=== PATIENT | male | born 1950 | race Caucasian/White ===

== ENCOUNTER 2020-06-24 10:03 | Outpatient (REF) | payer MEDICARE, OTHER, SELFPAY ==
[2020-06-24 11:13] LABS: MANUAL DIFF FLAG NO
[2020-06-24 11:23] LABS: Basophils Absolute Auto 0.1 X10*3/uL (0.0-0.2); Basophils Percent Auto 0.9 % (0-2); Eosinophils Absolute Auto 0.2 X10*3/uL (0.0-0.4); Hematocrit 44.4 % (42-52); Hemoglobin 14.3 g/dl (14.0-18.0); Imm Gran Abs Auto 0.01 X10*3/uL (0.00-0.03); Imm Gran Pct Auto 0.2 % (0.0-0.4); Immature Retic Fraction 3.3 % (2.3-13.4); Lymphocytes Absolute Auto 1.8 X10*3/uL (1.2-4.9); Mean Corpuscular HGB Conc 32.2 g/dl (31.0-36.0); Mean Corpuscular Hemoglobin 29.7 pg (27.0-33.0); Mean Corpuscular Volume 92.1 fL (80-98); Mean Platelet Volume 10.8 fL (9.4-12.4); Monocytes Absolute Auto 0.4 X10*3/uL (0.1-1.2); Monocytes Percent Auto 6.5 % (2-11); Neutrophils Absolute Auto 3.1 X10*3/uL (2.0-8.3); Neutrophils Percent Auto 55.4 % (45-73); Platelet Count 251 X10*3/uL (160-400); Red Blood Count 4.82 X10*6/uL (4.60-5.80); Red Cell Distribution Width 11.9 % (11.0-16.0); Retic HGB Equivalent 34.2 pg (30.0-35.0); Reticulocyte Percent 0.8 % (0.5-1.8); Reticulocytes Absolute 0.038 X10*6/uL (0.026-0.095); White Blood Count 5.5 X10*3/uL (4.8-10.8)
[2020-06-24 11:56] LABS: Alanine Aminotransferase 13 U/L (0-40); Albumin Level 4.4 g/dL (3.5-5.0); Alkaline Phosphatase 70 U/L (39-117); Anion Gap 14 (12-20); Aspartate Amino Transferase 25 U/L (5-37); Blood Urea Nitrogen 16 mg/dL (9-16); Carbon Dioxide 30 mmol/L (22-29); Chloride 101 mmol/L (96-108); Cholesterol 201 mg/dL; Estimated Glomerular Filt Rate > 60; Glucose Fasting 84 mg/dL (60-99); HDL Cholesterol 57 mg/dL; Iron 168 mcg/dL (45-160); LDL Cholesterol Calculated 125 mg/dl; Percent Iron Saturation 52 % (15-50); Potassium 4.7 mmol/l (3.3-5.1); Sodium 140 mmol/L (135-145); Total Iron Binding Capacity 324 mcg/dL (228-428); Total Protein 7.3 g/dL (6.5-8.0); Triglycerides 99 mg/dL; Unsaturated Iron Binding 156 ug/dL
[2020-06-24 12:18] LABS: Folate 16.5 ng/mL (> or = 4.0); Vitamin B12 285 pg/mL (200-900)
[2020-06-24 12:20] LABS: Ferritin 69 ng/mL (20-250); Thyroid Stimulating Hormone 1.65 uIU/mL (0.32-4.0)
[2020-06-24 12:53] LABS: T4 Thyroxine 9.5 ug/dL (4.5-12.0)
== END 2020-06-24 10:04 | disposition home or self-care (01) ==
LOC: HO.HMGCLDS 10:03
PROVIDERS: PCP Internal Medicine; Visit Provider Internal Medicine
DX: E03.9 Hypothyroidism, unspecified (principal); G43.909 Migraine, unspecified, not intractable, without status migrainosus; R63.4 Abnormal weight loss; E78.00 Pure hypercholesterolemia, unspecified; D64.9 Anemia, unspecified
CPT/HCPCS: 36415; 80053; 80061; 82607; 82728; 82746; 83540; 84436; 84443; 85025; 85045

== ENCOUNTER 2021-08-29 08:36 | Outpatient (REF) | payer MEDICARE, OTHER, SELFPAY ==
[2021-08-29 08:53] LABS: MANUAL DIFF FLAG NO
[2021-08-29 09:10] LABS: Basophils Absolute Auto 0.1 X10*3/uL (0.0-0.2); Basophils Percent Auto 1.1 % (0-2); Eosinophils Absolute Auto 0.2 X10*3/uL (0.0-0.4); Hematocrit 44.2 % (42.0-52.0); Hemoglobin 14.5 g/dl (14.0-18.0); Imm Gran Abs Auto 0.01 X10*3/uL (0.00-0.03); Imm Gran Pct Auto 0.2 % (0.0-0.4); Lymphocytes Absolute Auto 2.2 X10*3/uL (1.2-4.9); Lymphocytes Percent Auto 39.4 % (20-40); Mean Corpuscular HGB Conc 32.8 g/dl (31.0-36.0); Mean Corpuscular Hemoglobin 29.3 pg (27.0-33.0); Mean Corpuscular Volume 89.3 fL (80.0-98.0); Mean Platelet Volume 10.2 fL (9.4-12.4); Monocytes Absolute Auto 0.4 X10*3/uL (0.1-1.2); Monocytes Percent Auto 6.4 % (2-11); Neutrophils Absolute Auto 2.7 x10*3/uL (2.0-8.3); Neutrophils Percent Auto 48.9 % (45-73); Platelet Count 269 X10*3/uL (160-400); Red Blood Count 4.95 X10*6/uL (4.60-5.80); Red Cell Distribution Width 12.1 % (11.0-16.0); White Blood Count 5.5 X10*3/uL (4.8-10.8)
[2021-08-29 09:36] LABS: Alanine Aminotransferase 15 U/L (0-40); Albumin Level 4.2 g/dL (3.5-5.0); Alkaline Phosphatase 82 U/L (39-117); Anion Gap 10 (12-20); Aspartate Amino Transferase 26 U/L (5-37); Bilirubin Total 0.6 mg/dL (0.0-1.0); Blood Urea Nitrogen 20 mg/dL (9-16); Calcium 9.4 mg/dL (8.4-10.2); Carbon Dioxide 28 mmol/L (22-29); Chloride 106 mmol/L (96-108); Cholesterol 181 mg/dL; Estimated Glomerular Filt Rate > 60; Glucose Random 98 mg/dL (60-115); HDL Cholesterol 51 mg/dL; LDL Cholesterol Calculated 119 mg/dl; Potassium 4.7 mmol/L (3.3-5.1); Sodium 139 mmol/L (135-145); Total Protein 7.2 g/dL (6.5-8.0); Triglycerides 55 mg/dL
[2021-08-29 09:59] LABS: Free T4 (Free Thyroxine) 1.33 ng/dL (0.71-1.85); Prostate Specific Antigen Scr 0.88 ng/mL (<0.05-4.0); Thyroid Stimulating Hormone 2.02 uIU/mL (0.32-4.0)
[2021-08-29 10:08] LABS: Folate 13.9 ng/mL (> or = 4.0); Vitamin B12 348 pg/mL (200-900)
== END 2021-08-29 08:37 | disposition home or self-care (01) ==
LOC: HO.LAB 08:36
PROVIDERS: PCP Internal Medicine; Visit Provider Internal Medicine
DX: Z12.5 Encounter for screening for malignant neoplasm of prostate (principal); N40.0 Benign prostatic hyperplasia without lower urinary tract symptoms; E78.00 Pure hypercholesterolemia, unspecified
CPT/HCPCS: 36415; 80053; 80061; 82607; 82746; 84153; 84439; 84443; 85025

== ENCOUNTER → 2021-11-15 08:18 | Outpatient (BNVA) | payer SELFPAY | PROVIDERS: PCP Internal Medicine; Visit Provider Physician Assistant Medical | DX: Z02.79 Encounter for issue of other medical certificate (principal) ==

== ENCOUNTER 2022-01-20 08:13 | Day surgery (SDC) | payer MEDICARE, OTHER, SELFPAY ==
--- NOTE | 2022-01-19 08:48 | P.CONAN_ITS ---
Documented by User: Deborah Armenta NP 01/19/22 08:50 HPI - Anesthesia Eval Consult details Narrative: 71yo M for Colonoscopy PMFSH Active Problems Active Problems: All Active Problems (Updated 12/20/21 @ 19:26 by VALDEZ Garcia) Adult general medical exam (Acute) Colon cancer screening (Acute) Hypercholesterolemia (Acute) Hypothyroid (Acute) BPH (benign prostatic hyperplasia) (Acute) Osteoarthritis (Acute) Past Medical History Medical History Anemia BPH (benign prostatic hyperplasia) Closed right hip fracture Heel fracture Hypercholesterolemia Hypothyroid Migraine Osteoarthritis Testicular nodule Vitamin D deficiency Family History Family History Father CAD (coronary artery disease) Smoker CVD (cardiovascular disease) Malaria Mother Diabetes Pancreatic cancer Paternal Grandmother Breast cancer Surgical History Surgical History History of ankle surgery History of foot surgery History of inguinal hernia repair History of nasal surgery History of right hip hemiarthroplasty Hx of dilation of urethra Social History Social History Housing: House Patient Tobacco Use Status: Never used Tobacco e-Cigarette/Vaping Use: Never Used Second Hand Smoke Exposure: No Are you DNR?: No Advance Directives: No Advance Directives Information Provided: Yes Advance Directives on File: No Nutrition Risks: No Nutritional Risk Current occupational status: retired Meds Allergies Allergy/AdvReac Type Severity Reaction Status Date / Time No Known Allergies Allergy Verified 01/20/22 09:24 [No Known Allergies*] Home Medications Medication Instructions Recorded Confirmed Last Taken Type coenzyme Q10 100 mg capsule 100 mg PO DAILY 07/02/20 12/20/21 Unknown History (CoQ-10) ibuprofen 400 mg tablet 400 mg PO Q6H 07/02/20 12/20/21 Unknown History Exam Exam Date and Time: January 19, 2022 0848 Pertinent Lab Results Pertinent Lab Results: Laboratory Tests 08/29/21 08/29/21 08:52 08:52 WBC 5.5 Hgb 14.5 Hct 44.2 Plt Count 269 Sodium 139 Potassium 4.7 Chloride 106 Carbon Dioxide 28 BUN 20 H Creatinine 0.92 Assessment and Plan Assessment Anesthesia Assessment: Chart Reviewed Documented by User: Jason Lopez MD 01/20/22 10:23 PMFSH Past Medical History Medical History Anemia BPH (benign prostatic hyperplasia) Closed right hip fracture Heel fracture Hypercholesterolemia Hypothyroid Migraine Osteoarthritis Testicular nodule Vitamin D deficiency Family History Family History Father CAD (coronary artery disease) Smoker CVD (cardiovascular disease) Malaria Mother Diabetes Pancreatic cancer Paternal Grandmother Breast cancer Family history of problems with anesthesia: No Surgical History Surgical History History of ankle surgery History of foot surgery History of inguinal hernia repair History of nasal surgery History of right hip hemiarthroplasty Hx of dilation of urethra History of Problems with Anesthesia: No Social History Social History Housing: House Patient Tobacco Use Status: Never used Tobacco e-Cigarette/Vaping Use: Never Used Second Hand Smoke Exposure: No Are you DNR?: No Advance Directives: No Advance Directives Information Provided: Yes Advance Directives on File: No Nutrition Risks: No Nutritional Risk Current occupational status: retired [employer] Allergies Allergy/AdvReac Type Severity Reaction Status Date / Time No Known Allergies Allergy Verified 01/20/22 09:24 [No Known Allergies*] Home Medications Medication Instructions Recorded Confirmed Last Taken Type coenzyme Q10 100 mg capsule 100 mg PO DAILY 07/02/20 12/20/21 Unknown History (CoQ-10) ibuprofen 400 mg tablet 400 mg PO Q6H 07/02/20 12/20/21 Unknown History Exam Airway Mallampati Class: II TM Dist: >3cm Neck ROM: Full Assessment and Plan Assessment Anesthesia Assessment: Anesthesia Plan Discussed Final Anesthetic Review Family History of Problems with Anesthesia: No History of Problems with Anesthesia: No NPO: Yes ASA Class: II Final Preanesthetic Review: No Changes in Pt Med Stat, Meds/Allgs Chart Reviewed, Consent Obtained/Reviewed and Anes Risks/Benef Reviewed Patient Risk: Low Procedure Risk: Low Anesthetic Plan Anesthetic Plan: MAC: Disposition: Standard PACU
[2022-01-20 09:21] VITALS: BP 127/94; PULSE 57; RESP 18; TEMP 36.7; O2SAT 97; BMI 25.1
[2022-01-20] MEDS: Lactated Ringers 1,000 ML 100 ML IVCONT (09:54)
--- NOTE | 2022-01-20 10:30 | PC.NURSE ---
dr. madden aware that pt pulse at rest is 42-46. pulse in 50's when awake and talking. no interventions at this time needed
[2022-01-20 11:37] VITALS: BP 94/61; PULSE 52; RESP 15; TEMP 36.4; O2SAT 98
--- NOTE | 2022-01-20 11:38 | P.BOP_ITS ---
Brief Operative Note Date of Service: 01/20/22 Pre-op diagnosis: Screening Post-op diagnosis: other (Diverticulosis) Procedure: Colonoscopy to the cecum and TI Surgeon: Jean De Dios Anesthesia: MAC Was an Inshore Undersea Warfare Officer used for this Procedure?: No Estimated blood loss (mL): 0 Pathology: none sent Condition: stable Disposition: PACU
[2022-01-20 11:52] VITALS: BP 113/67; PULSE 57; RESP 15; TEMP 36.4; O2SAT 97
[2022-01-20 12:07] VITALS: BP 119/76; PULSE 50; RESP 16; O2SAT 97
[2022-01-20 12:16] VITALS: BP 105/70; PULSE 51; RESP 16; TEMP 36.4; O2SAT 98
--- NOTE | 2022-01-20 12:22 | OP_ITS ---
SURGEON: Jean De Dios MD INDICATIONS: The patient presents for followup of colorectal cancer screening and personal history of tubular adenoma of the colon. Full consent was obtained from him for this, including risks of bleeding and perforation. PREOPERATIVE DIAGNOSIS: POSTOPERATIVE DIAGNOSIS: PROCEDURE PERFORMED: Colonoscopy to cecum and terminal ileum. ESTIMATED BLOOD LOSS: COMPLICATIONS: ANESTHESIA: Monitored anesthesia care. ASSISTANTS: SPECIMENS: PREOPERATIVE DIAGNOSES: Colorectal cancer screening and personal history of tubular adenoma of the colon. POSTOPERATIVE DIAGNOSES: Colorectal cancer screening and personal history of tubular adenoma of the colon, diverticulosis and internal hemorrhoids. DESCRIPTION OF PROCEDURE: The patient was placed in the left lateral decubitus position. The digital rectal exam revealed no abnormalities. The Olympus video pediatric colonoscope was entered into the rectum and advanced to the cecum. Once in the cecum, I did identify normal-appearing cecal pouch with appendiceal orifice and a normal-appearing ileocecal valve. The terminal ileum was cannulated and appeared normal. The scope was withdrawn back in the colon. The entire cecum and ileocecal valve appeared normal. The scope was slowly withdrawn assessing all mucosal surfaces carefully. Preparation was excellent. I did not visualize any sign of polyps, colitis, nor angiodysplasia. There was a mild amount of sigmoid diverticulosis. In the rectum, scope was retroflexed visualizing internal hemorrhoids, but no other pathology. The rectal mucosa appeared normal. Scope was straightened and withdrawn from the patient. He tolerated the procedure well and was returned to recovery area in stable condition. IMPRESSION: 1. Diverticulosis. 2. Internal hemorrhoids. PLAN: Given the negative exam, as well as 2 previous negative colonoscopies in 2010 and 2015, I do not think he will need any further screening colonoscopies in the future. As such, he will see me again on a p.r.n. basis. MD OTTONIEL Escalante/[facility] / [phone]
== END 2022-01-20 12:35 | disposition home or self-care (01) ==
PROVIDERS: PCP Internal Medicine; Visit Provider Internal Medicine
PROC: 0DJD8ZZ Inspection of Lower Intestinal Tract, Via Natural or Artificial Opening Endoscopic (ICD-10-PCS; CPT 45378; principal; 2022-01-20 10:40)
DX: Z12.11 Encounter for screening for malignant neoplasm of colon (principal); Z86.010 Personal history of colon polyps; K57.30 Diverticulosis of large intestine without perforation or abscess without bleeding; K64.8 Other hemorrhoids; E78.00 Pure hypercholesterolemia, unspecified; E03.9 Hypothyroidism, unspecified; Z79.899 Other long term (current) drug therapy
CPT/HCPCS: G0105

== ENCOUNTER 2022-03-03 04:43 | Emergency (ER) | payer MEDICARE, OTHER, SELFPAY ==
--- NOTE | 2022-03-03 | ECG_ITS ---
Test Reason : LOW HEART RATE Blood Pressure : / mmHG Vent. Rate : 036 BPM Atrial Rate : 036 BPM P-R Int : 186 ms QRS Dur : 138 ms QT Int : 500 ms P-R-T Axes : 014 -72 002 degrees QTc Int : 386 ms Marked sinus bradycardia Left axis deviation Left ventricular hypertrophy with QRS widening ( R in aVL , Alberto product ) Septal infarct (cited on or before 08-JAN-2019) Abnormal ECG When compared with ECG of 08-JAN-2019 15:01, Questionable change in initial forces of Septal leads Heart rate has decreased Referred By: Generic ED Physician Electronically Signed By:ADRIENNE BALDWIN
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
[2022-03-03 04:48] VITALS: BP 153/76; PULSE 38; RESP 18; TEMP 36.2; O2SAT 98
[2022-03-03 05:08] VITALS: BP 144/69; PULSE 42; RESP 16; TEMP 36.4; O2SAT 97; BMI 23.8
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
[2022-03-03 06:19] VITALS: BP 131/93; PULSE 57; RESP 20; O2SAT 98
[2022-03-03 06:29] LABS: MANUAL DIFF FLAG NO
[2022-03-03 06:32] LABS: Basophils Absolute Auto 0.1 X10*3/uL (0.0-0.2); Basophils Percent Auto 0.8 % (0-2); Eosinophils Absolute Auto 0.2 X10*3/uL (0.0-0.4); Eosinophils Percent Auto 2.5 % (0-4); Hematocrit 40.6 % (42.0-52.0); Hemoglobin 13.5 g/dl (14.0-18.0); Imm Gran Abs Auto 0.02 X10*3/uL (0.00-0.03); Imm Gran Pct Auto 0.3 % (0.0-0.4); Lymphocytes Percent Auto 33.7 % (20-40); Mean Corpuscular HGB Conc 33.3 g/dl (31.0-36.0); Mean Corpuscular Hemoglobin 29.7 pg (27.0-33.0); Mean Corpuscular Volume 89.2 fL (80.0-98.0); Mean Platelet Volume 9.9 fL (9.4-12.4); Monocytes Absolute Auto 0.4 X10*3/uL (0.1-1.2); Neutrophils Absolute Auto 3.3 x10*3/uL (2.0-8.3); Neutrophils Percent Auto 55.7 % (45-73); Platelet Count 218 X10*3/uL (160-400); Red Blood Count 4.55 X10*6/uL (4.60-5.80)
[2022-03-03 06:51] LABS: Alanine Aminotransferase 10 U/L (0-40); Alkaline Phosphatase 69 U/L (39-117); Anion Gap 13 (12-20); Aspartate Amino Transferase 23 U/L (5-37); Bilirubin Total 0.8 mg/dL (0.0-1.0); Blood Urea Nitrogen 17 mg/dL (9-16); Carbon Dioxide 26 mmol/L (22-29); Chloride 105 mmol/L (96-108); Estimated Glomerular Filt Rate > 60; Glucose Random 97 mg/dL (60-115); Potassium 4.2 mmol/L (3.3-5.1); Sodium 140 mmol/L (135-145); Total Protein 6.9 g/dL (6.5-8.0)
[2022-03-03 07:12] LABS: Thyroid Stimulating Hormone 0.98 uIU/mL (0.32-4.0)
== END 2022-03-03 07:19 | disposition home or self-care (01) ==
PROVIDERS: Emergency Provider Internal Medicine; PCP Internal Medicine
DX: S62.91XA Unspecified fracture of right hand, initial encounter for closed fracture (principal); R00.1 Bradycardia, unspecified; M79.641 Pain in right hand; X58.XXXA Exposure to other specified factors, initial encounter; Y93.9 Activity, unspecified; Y92.9 Unspecified place or not applicable; Y99.9 Unspecified external cause status; Z79.899 Other long term (current) drug therapy
CPT/HCPCS: 29125; 36415; 73120; 80053; 83735; 84443; 85025; 93005; 99283; 99284

== ENCOUNTER 2022-03-04 09:31 | Emergency (ER) | payer MEDICARE, OTHER, SELFPAY ==
[2022-03-04 09:41] VITALS: BP 135/79; PULSE 41; RESP 17; TEMP 36.1; O2SAT 98
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
[2022-03-04 10:04] VITALS: BMI 27.1
== END 2022-03-04 10:09 | disposition home or self-care (01) ==
PROVIDERS: Emergency Provider Emergency Medicine; PCP Internal Medicine
DX: Z46.89 Encounter for fitting and adjustment of other specified devices (principal); S62.306D Unspecified fracture of fifth metacarpal bone, right hand, subsequent encounter for fracture with routine healing; V49.9XXD Car occupant (driver) (passenger) injured in unspecified traffic accident, subsequent encounter
CPT/HCPCS: 99282

== ENCOUNTER 2022-03-08 08:24 | Outpatient (REF) | payer MEDICARE, OTHER, SELFPAY ==
--- NOTE | ~2022-03-08 | XR_ITS ---
EXAMINATION: XR HAND, RIGHT CLINICAL INFORMATION: Pain right hand. COMPARISON: Right hand 03/03/2022. TECHNIQUE: PA, lateral, and oblique views of the right hand. FINDINGS: There is an oblique mildly displaced fracture mid 5th metacarpal. There is no dislocation. XR/XR hand RT min 3V IMPRESSION: Oblique fracture mid segment 5th metacarpal with minimal displacement. No change from from previous exam 03/03/2022.
== END 2022-03-08 08:25 | disposition home or self-care (01) ==
LOC: HO.HOSX 08:24
PROVIDERS: Visit Provider Orthopaedic Surgery
DX: S62.326A Displaced fracture of shaft of fifth metacarpal bone, right hand, initial encounter for closed fracture (principal)
CPT/HCPCS: 73130; 99202

== ENCOUNTER 2022-04-04 09:13 | Outpatient (REF) | payer MEDICARE, OTHER, SELFPAY ==
--- NOTE | ~2022-04-04 | XR_ITS ---
EXAMINATION: XR HAND, RIGHT CLINICAL INFORMATION: Fracture COMPARISON: Previous x-ray most recent 03/08/2022 TECHNIQUE: PA, lateral, and oblique views of the right hand. FINDINGS: There is a displaced fracture of the fifth metacarpal bone. Alignment is unchanged. Fracture line is still seen. There is some increasing bony callus formation at the fracture site. There is severe arthritis at the wrist with widened scapholunate distance, proximal migration of the capitate bone and marked joint space narrowing at the radiocarpal joint. There may be cystic changes of the wrist, particularly the capitate bone. Soft tissues are unremarkable.. XR/XR hand RT min 3V IMPRESSION: Increasing bony callus formation of the fifth metacarpal shaft fracture. Alignment is unchanged.
== END 2022-04-04 09:14 | disposition home or self-care (01) ==
LOC: HO.HOSX 09:13
PROVIDERS: Visit Provider Orthopaedic Surgery
DX: M79.641 Pain in right hand (principal)
CPT/HCPCS: 73130

== ENCOUNTER 2022-04-12 07:10 | Outpatient (REF) | payer MEDICARE, OTHER, SELFPAY ==
--- NOTE | ~2022-04-12 | XR_ITS ---
EXAMINATION: XR HIP, RIGHT CLINICAL INFORMATION: Pain COMPARISON: Right hip radiograph from 02/24/2019 TECHNIQUE: Two views of the right hip. FINDINGS: Status post right hip arthroplasty. Orthopedic hardware is grossly intact. No acute visible fracture or dislocation. Degenerative arthropathy at the lumbosacral junction. Visualized bowel gas is unremarkable. Soft tissues are unremarkable. XR/XR hip RT w [id number] IMPRESSION: 1. Status post right hip arthroplasty. Orthopedic hardware is grossly intact. 2. No acute visible fracture or dislocation. 3. Degenerative arthropathy at the lumbosacral junction.
== END 2022-04-12 07:11 | disposition home or self-care (01) ==
LOC: HO.HOSX 07:10
PROVIDERS: Visit Provider Physician Assistant
DX: M25.551 Pain in right hip (principal); Z96.641 Presence of right artificial hip joint
CPT/HCPCS: 73502; 99212

== ENCOUNTER 2022-10-19 10:28 | Outpatient (REF) | payer MEDICARE, OTHER, SELFPAY ==
[2022-10-19 10:46] LABS: MANUAL DIFF FLAG NO
[2022-10-19 11:02] LABS: Basophils Absolute Auto 0.1 X10*3/uL (0.0-0.2); Basophils Percent Auto 1.3 % (0-2); Eosinophils Absolute Auto 0.3 X10*3/uL (0.0-0.4); Eosinophils Percent Auto 6.7 % (0-4); Hematocrit 41.7 % (42.0-52.0); Hemoglobin 13.8 g/dl (14.0-18.0); Imm Gran Abs Auto 0.01 X10*3/uL (0.00-0.03); Imm Gran Pct Auto 0.2 % (0.0-0.4); Lymphocytes Percent Auto 42.2 % (20-40); Mean Corpuscular HGB Conc 33.1 g/dl (31.0-36.0); Mean Corpuscular Hemoglobin 29.5 pg (27.0-33.0); Mean Corpuscular Volume 89.1 fL (80.0-98.0); Mean Platelet Volume 10.2 fL (9.4-12.4); Monocytes Absolute Auto 0.3 X10*3/uL (0.1-1.2); Monocytes Percent Auto 7.4 % (2-11); Neutrophils Percent Auto 42.2 % (45-73); Platelet Count 233 X10*3/uL (160-400); Red Blood Count 4.68 X10*6/uL (4.60-5.80); Red Cell Distribution Width 12.1 % (11.0-16.0); White Blood Count 4.6 X10*3/uL (4.8-10.8)
[2022-10-19 11:36] LABS: Alanine Aminotransferase 13 U/L (0-40); Albumin Level 4.1 g/dL (3.5-5.0); Alkaline Phosphatase 88 U/L (39-117); Anion Gap 11 (12-20); Aspartate Amino Transferase 25 U/L (5-37); Bilirubin Total 1.2 mg/dL (0.0-1.0); Blood Urea Nitrogen 16 mg/dL (9-16); Calcium 9.2 mg/dL (8.4-10.2); Carbon Dioxide 28 mmol/L (22-29); Chloride 107 mmol/L (96-108); Cholesterol 196 mg/dL; Estimated Glomerular Filt Rate > 60; Glucose Random 90 mg/dL (60-115); HDL Cholesterol 44 mg/dL; LDL Cholesterol Calculated 136 mg/dl; Potassium 4.3 mmol/L (3.3-5.1); Sodium 142 mmol/L (135-145); Total Protein 6.7 g/dL (6.5-8.0); Triglycerides 84 mg/dL
[2022-10-19 12:11] LABS: Folate 15.3 ng/mL (> or = 4.0); Free T4 (Free Thyroxine) 1.33 ng/dL (0.71-1.85); Prostate Specific Antigen Scr 1.01 ng/mL (<0.05-4.0); Thyroid Stimulating Hormone 0.87 uIU/mL (0.32-4.0); Vitamin B12 379 pg/mL (200-900)
== END 2022-10-19 10:29 | disposition home or self-care (01) ==
LOC: HO.LAB 10:28
PROVIDERS: PCP Internal Medicine; Visit Provider Internal Medicine
DX: E03.9 Hypothyroidism, unspecified (principal); E78.00 Pure hypercholesterolemia, unspecified; Z12.5 Encounter for screening for malignant neoplasm of prostate
CPT/HCPCS: 36415; 80053; 80061; 82607; 82746; 84153; 84439; 84443; 85025

== ENCOUNTER 2023-04-25 12:57 | Outpatient (AMB) | payer MEDICARE, OTHER, SELFPAY ==
[2023-04-25 13:15] VITALS: BP 118/68; PULSE 52; O2SAT 98; BMI 23.6
--- NOTE | 2023-04-25 13:15 | A.OFFPC_ITS ---
Vital Signs 04/25/23 13:15 Height 6 ft Weight 174 lb BMI 23.6 BP 118/68 Blood Pressure Location Lt brachial Position Sitting Pulse 52 Pulse Source Pulse Oximeter Pulse Oximetry (%) 98 Oxygen Delivery Method Room Air Intake Visit Reasons: cholesterol Allergies No Known Allergies [No Known Allergies*] Allergy (Verified 04/25/23 13:15) Tobacco use date assessed: 10/26/22 Fall risk assessment: No Falls in past year Last assessed Fall Risk: 04/25/23 Dental Screening Dental Screen Date: 04/25/23 Did you have a dental visit in the last 12 months?: Yes Did you have a dental problem in the last 6 months where you did not have access to dental care?: No Was dental information given to patient?: Patient has dentist HPI cholesterol HPI Details Hjxtwof[age]fckn[age]-old male with a history of BPH hypothyroidism hypercholesterolemia and chronic anemia coming in for follow-up. Last seen in October 2022 [facility] Medical History (Updated 04/25/23 @ 13:35 by Jonathan Pearl MD) Closed right hip fracture Testicular nodule Heel fracture Hypercholesterolemia Vitamin D deficiency Hypothyroid BPH (benign prostatic hyperplasia) Migraine Anemia Osteoarthritis Surgical History (Updated 04/12/22 @ 09:42 by Thom De Jesus) History of right hip hemiarthroplasty Hx of dilation of urethra History of foot surgery History of inguinal hernia repair History of nasal surgery History of ankle surgery Family History (Updated 10/26/22 @ 13:56 by Kathya Cavazos [facility]) Father CAD (coronary artery disease) Smoker CVD (cardiovascular disease) Malaria Mother Diabetes Pancreatic cancer Paternal Grandmother Breast cancer Social History Housing: House Patient Tobacco Use Status: Never used Tobacco e-Cigarette/Vaping Use: Never Used Second Hand Smoke Exposure: No Current occupational status: employed and retired 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 1. Little interest or pleasure in doing things: not at all 2. Feeling down, depressed, or hopeless: not at all 3. Trouble falling or staying asleep, or sleeping too much: not at all 4. Feeling tired or having little energy: not at all 5. Poor appetite or overeating: not at all 6. Feeling bad about yourself - or that you are a failure or have let yourself or your family down: not at all 7. Trouble concentrating on things, such as reading the newspaper or watching television: not at all 8. Moving or speaking so slowly that other people could have noticed. Or the opposite - being so fidgety or restless that you have been moving around a lot more than usual: not at all 9. Thoughts that you would be better off or of hurting yourself in some way: not at all Total score: 0 Depression Screening Interpretation: Negative Depression Screening Done: Yes Source: Developed by Drs. Jean Adair, Rebeka Chaudhary, Tony Jiang and colleagues, with an educational ganesh from [employer]. Thrive Questionnaire Date Thrive assessed: 10/26/22 AUDIT C Alcohol Use Questionnaire (AUDIT-C) 1. How often do you have a drink containing alcohol?: Monthly or less 2. How many drinks containing alcohol do you have on a typical day when you are drinking?: 1 or 2 3. How often do you have six or more drinks on one occasion?: Never Total Score: 1 Score Reviewed/Action Taken: No ALBA-7 AMB Questionnaire ALBA-7 Date ALBA - 7 assessed: 10/26/22 Source: Developed by Drs. Jean Adair, Tony Dunaway and colleagues, with an educational ganesh from [employer]. Physical exam (Primary Care) Vital Signs: Last Vital Signs Pulse 52 04/25/23 13:15 BP 118/68 04/25/23 13:15 Pulse Ox 98 04/25/23 13:15 Oxygen Delivery Method Room Air 04/25/23 13:15 BMI result Body Mass Index 23.6 Tobacco/Smoking Status: Tobacco use Status Tobacco use date assessed 10/26/22 04/25/23 13:20 Patient Tobacco Use Status Never used Tobacco 04/25/23 13:20 e-Cigarette/Vaping Use Never Used 04/25/23 13:20 PHQ-9: PHQ-9 Score PHQ-9: Total score 0 04/25/23 13:23 Depression Screening Interpretation: Negative Thrive Assessment: Date of Thrive Assessment Date Thrive assessed 10/26/22 04/25/23 13:20 Const General: alert; No acute distress Eyes Conjunctivae: conjunctivae normal Resp Auscultation: clear to auscultation bilaterally Cardio Rate: regular rate Rhythm: regular rhythm GI Inspection: Yes normal to inspection Extrem General: Yes normal to inspection and No edema Office Procedures Flu Questionnaire Does the patient have a severe egg allergy?: No Does the patient have severe life threatening allergies?: No Does the patient have a fever or illness today?: No Has the patient ever had Guillain-[place] Syndrome?: No Has the patient ever had any past reaction to a flu shot?: No Immunizations flu vacc [id number] 6mos up(PF) 60 mcg(15 mcgx4)/0.5 mL IM syringe Performing Provider: Jonathan Pearl MD [facility] Administered by: Kathya Cavazos CMA on 04/25/23 13:23 Dose Route Admin Location Dispensed Lot Number Expiration Date NDC Line Installer Repairer 0.5 mL IM Left Deltoid 0.5 mL [id number] 01/12/23 [id number] Cardio control VIS Given Date VIS Provided VIS Publication Date 04/25/23 Single Vaccine 21 Eligibility Eligibility Date Funding Source Not [facility] Eligible 04/25/23 Private Assessment and Plan Assessment & Plan (1) Anemia: Code(s): D64.9 - Anemia, unspecified Plan: Continue to monitor (2) Hypercholesterolemia: Code(s): E78.00 - Pure hypercholesterolemia, unspecified Plan: . October 2022 last blood work Avoid fried foods, chicken skin, eggs, butter margarine, pastries and meat. Be it pork or beef they have a lot of cholesterol. Patient is on simvastatin (3) Hypothyroid: Code(s): E03.9 - Hypothyroidism, unspecified Plan: Continue with thyroid medication October 2022 last blood work (4) Frequency of micturition: Code(s): R35.0 - Frequency of micturition (5) Tremor of both hands: Code(s): R25.1 - Tremor, unspecified Orders: Orders US bladder Today R35.0 - Frequency of micturition Influenza [id number] Immunization Today Z23 - Encounter for immunization Coding Level of Care Code Est Pt Level 4 (56013) Diagnoses Anemia D64.9 Hypercholesterolemia E78.00 Hypothyroid E03.9 Frequency of micturition R35.0 Tremor of both hands R25.1 Additional Codes PHQ-9 - 24799 - PHQ-9 Billing: ([id number])
== END 2023-04-25 13:41 | disposition home or self-care (01) ==
PROVIDERS: Visit Provider Internal Medicine
DX: D64.9 Anemia, unspecified (principal); E78.00 Pure hypercholesterolemia, unspecified; E03.9 Hypothyroidism, unspecified; R35.0 Frequency of micturition; R25.1 Tremor, unspecified; Z23 Encounter for immunization
CPT/HCPCS: 90471; 90686; 99214

== ENCOUNTER 2023-05-30 13:43 | Outpatient (REF) | payer MEDICARE, OTHER, SELFPAY ==
--- NOTE | ~2023-05-30 | US_ITS ---
EXAMINATION: US PELVIS LIMITED (BLADDER) CLINICAL INFORMATION: Frequency of micturition. COMPARISON: None available. TECHNIQUE: Real-time imaging of the bladder. FINDINGS: BLADDER: Well distended and normal. Bilateral ureteral jets are demonstrated. Prevoid bladder volume is 172.0 mL. Postvoid bladder volume is 2.0 mL. ADDITIONAL FINDINGS: The prostate is enlarged measuring 5.6 x 4.3 x 3.4 cm for a volume of 43 mL. US/US bladder IMPRESSION: Enlarged prostate. No significant postvoid residua.
== END 2023-05-30 13:44 | disposition home or self-care (01) ==
LOC: HO.US 13:43
PROVIDERS: PCP Internal Medicine; Visit Provider Internal Medicine
DX: R35.0 Frequency of micturition (principal)
CPT/HCPCS: 76857

== ENCOUNTER 2023-07-11 15:11 | Outpatient (AMB) | payer MEDICARE, OTHER, SELFPAY ==
[2023-07-11 15:18] VITALS: BP 106/80; PULSE 61; O2SAT 92; BMI 23.9
--- NOTE | 2023-07-11 15:18 | AM.OFFVISMDC ---
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 Patient had frequency and had an ultrasound of bladder showing enlarged prostate but able to empty out the bladder.. 10 days ago flu PFSH Medical History (Updated 07/11/23 @ 18:59 by Jonathan Pearl MD) Closed right hip fracture Testicular nodule Heel fracture Hypercholesterolemia Vitamin D deficiency Hypothyroid BPH (benign prostatic hyperplasia) Migraine Anemia Osteoarthritis Surgical History History of right hip hemiarthroplasty Hx of dilation of urethra History of foot surgery History of inguinal hernia repair History of nasal surgery History of ankle surgery Family History Father CAD (coronary artery disease) Smoker CVD (cardiovascular disease) Malaria Mother Diabetes Pancreatic cancer Paternal Grandmother Breast cancer Social History (Updated 07/11/23 @ 16:19 by Jonathan Pearl MD) Housing: House Alcohol intake: current Comment: 2-3 drinks a week 1-2 x a week Patient Tobacco Use Status: Never used Tobacco e-Cigarette/Vaping Use: Never Used Second Hand Smoke Exposure: No Current occupational status: employed and retired 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 Cognitive needs: No Hearing needs: No Vision needs: Yes Questionnaire Medicare Wellness Checkup [age] What gender do you identify with?: male During the past 4 weeks, how much have you been bothered by emotional problems such as feeling anxious, depressed, irritable, sad or downhearted, and blue?: not at all During the past 4 weeks, has your physical & emotional health limited your social activities with family, friends, neighbors, or groups?: not at all During the past 4 weeks, how much bodily pain have you generally had?: mild pain During the past 4 weeks, was someone available to help you if you needed & wanted help?: yes, a little During the past 4 weeks, what was the hardest physical activity you could do for at least 2 minutes?: heavy Can you get to places out of walking distance without help? (For eg., can you travel alone on buses, taxis or drive your car?): Yes Can you go shopping for groceries or clothes without someone's help?: Yes Can you prepare your own meals?: Yes Can you do your housework without help?: Yes Because of any health problems, do you need the help of another person with your personal care needs such as eating, bathing, dressing or getting around the house?: No During the past 4 weeks, how would you rate your health in general?: very good During the past 4 weeks how have things been going for you?: very well; could hardly better Are you having difficulties driving your car?: no Do you always fasten your seat belt when you are in a car?: yes, usually During past 4 weeks, have you been bothered by the following: never: Falling or dizzy when standing up, Trouble eating well? and Problems using the telephone? and seldom: Sexual problems?, Teeth or denture problems? and Tiredness or fatigue? Have you fallen 2 or more times in the past year?: No Are you afraid of falling?: No Are you a smoker?: no During the past 4 weeks, how many drinks of wine, beer, or other alcoholic beverages did you have?: 2-5 drinks per week Do you exercise for about 20 minutes 3 or more times a week?: yes, some of the time Have you been given information to help with the following?: no: Hazards in your house that might hurt you? and no: Keeping track of your medications? How often do you have trouble taking medicines the way you have been told to take them?: sometimes I take medicine as prescribed How confident are you that you can control & manage most of your health problems?: very confident What is your race?: White PHQ-9 Over the last 2 weeks, how often have you been bothered by any of the following problems? 1. Little interest or pleasure in doing things: not at all 2. Feeling down, depressed, or hopeless: not at all 3. Trouble falling or staying asleep, or sleeping too much: not at all 4. Feeling tired or having little energy: several days 5. Poor appetite or overeating: not at all 6. Feeling bad about yourself - or that you are a failure or have let yourself or your family down: not at all 7. Trouble concentrating on things, such as reading the newspaper or watching television: several days 8. Moving or speaking so slowly that other people could have noticed. Or the opposite - being so fidgety or restless that you have been moving around a lot more than usual: not at all 9. Thoughts that you would be better off or of hurting yourself in some way: not at all Total score: 2 68047 - PHQ-9 Billing: Yes Source: Developed by Drs. Jean Adair, Rebeka Chaudhary, Tony Jiang and colleagues, with an educational ganesh from [employer]. Review of Systems Const Denies poor appetite and Denies weakness Eyes Denies no additional complaints ENT Reports Normal hearing present, Denies dizziness, Denies nasal congestion, Denies tinnitus and Denies sore throat Card Denies chest pain, Denies syncope, Denies rapid heart rate and Denies dyspnea Resp Denies cough and Denies dyspnea GI Denies change in stool character, Reports constipation, Denies diarrhea, Denies nausea and Denies vomiting Denies dysuria and Denies urinary frequency Neuro Reports Normal hearing present, Denies confusion, Denies dizziness, Denies syncope and Denies weakness Psych Denies confusion Physical Exam Vital Signs: Last Vital Signs Pulse 61 07/11/23 15:18 BP 106/80 07/11/23 15:18 Pulse Ox 92 07/11/23 15:18 Oxygen Delivery Method Room Air 07/11/23 15:18 BMI result Body Mass Index 23.9 Const General: No confusion Orientation/consciousness: No confusion HEENT Head: Yes normocephalic Ears: external ears normal and TM's normal bilaterally Face and sinus: Yes normal facial exam Mouth: moist mucous membranes Throat: Yes tonsils normal Eyes Conjunctivae: conjunctivae normal Pupils: Equal, round and reactive pupils present and Pupil accommodation reflex normal Direct Ophthalmoscopy: normal light reflex Neck Neck: No lymphadenopathy Thyroid: Thyroid normal Chest Chest palpation & inspection: normal inspection of the chest Resp Effort & Inspection: normal respiratory effort and no audible wheezes Auscultation: clear to auscultation bilaterally, no crackles, no wheezes and lung sounds not diminished Cardio Rate: regular rate Rhythm: regular rhythm Peripheral pulses: radial pulses present and dorsalis pedis present GI Other: guaiac negative prostate enalrged Palpation (GI): no masses Auscultation: normal bowel sounds and normoactive bowel sounds Male General Exam: Yes normal external exam Skin General skin exam: no rashes or lesions noted Rashes: no rashes Neuro General: No confusion Cranial nerves: Yes Equal, round and reactive pupils present and Yes Normal hearing present Cognition (Neuro): normal cognition Gait exam (Neuro): Normal gait present Motor exam (neuro): 5/5 motor strength present throughout Deep tendon reflexes (DTR's): Right brachioradialis reflex intensity grade: 2+, Left brachioradialis reflex intensity grade: 2+, Right patellar reflex intensity grade: 2+ and Left patellar reflex intensity grade: 2+ Extrem General: No edema Assessment & Plan Assessment & Plan (1) Medicare annual wellness visit, subsequent: Code(s): Z00.00 - Encounter for general adult medical examination without abnormal findings Plan: Continue with present medications. Keep well hydrated, eat healthy and keep active (2) Anemia: Code(s): D64.9 - Anemia, unspecified Qualifiers: Anemia type: unspecified type Qualified Code(s): D64.9 - Anemia, unspecified Plan: Chronic and stable (3) Hypothyroid: Code(s): E03.9 - Hypothyroidism, unspecified Qualifiers: Hypothyroidism type: unspecified Qualified Code(s): E03.9 - Hypothyroidism, unspecified Plan: Continue with thyroid Medicaid (4) BPH (benign prostatic hyperplasia): Comment: s/p TUNA Code(s): N40.0 - Benign prostatic hyperplasia without lower urinary tract symptoms Qualifiers: Lower urinary tract symptom presence: unspecified whether lower urinary tract symptoms present Qualified Code(s): N40.0 - Benign prostatic hyperplasia without lower urinary tract symptoms Plan: Stable (5) Hypercholesterolemia: Code(s): E78.00 - Pure hypercholesterolemia, unspecified Plan: Avoid fried foods, chicken skin, eggs, butter margarine, pastries and meat. Be it pork or beef they have a lot of cholesterol LDL goal of less than 130 and triglyceride of less than 150. (6) Hematuria: Code(s): R31.9 - Hematuria, unspecified Qualifiers: Hematuria type: gross Qualified Code(s): R31.0 - Gross hematuria Plan: Will work this up cytology Orders: Orders Comprehensive Met. Panel Today E78.00 - Pure hypercholesterolemia, unspecified Free T4 (Free Thyroxine) Today E78.00 - Pure hypercholesterolemia, unspecified Thyroid Stimulating Hormone Today E78.00 - Pure hypercholesterolemia, unspecified Lipid Panel Today E78.00 - Pure hypercholesterolemia, unspecified Prostate Specific Antigen Scr Today R31.9 - Hematuria, unspecified Ferritin Today R31.9 - Hematuria, unspecified Reticulocyte Count Today R31.9 - Hematuria, unspecified IRON PROFILE Today R31.9 - Hematuria, unspecified Complete Blood Count Auto Diff Today E78.00 - Pure hypercholesterolemia, unspecified Vitamin B12 and Folate Today E78.00 - Pure hypercholesterolemia, unspecified UA w Microscopic Today R31.9 - Hematuria, unspecified Urine Cytology Today R31.9 - Hematuria, unspecified Quality Reporting (2019) Depression/Bipolar (159/160/161/177) PHQ-9: Total score: 2 Coding Level of Care Code Medicare Subsequent (G0439) Diagnoses Medicare annual wellness visit, subsequent Z00.00 Anemia, unspecified type D64.9 Anemia type: unspecified type Hypothyroidism, unspecified type E03.9 Hypothyroidism type: unspecified Benign prostatic hyperplasia, unspecified whether lower urinary tract symptoms present N40.0 Lower urinary tract symptom presence: unspecified whether lower urinary tract symptoms present Hypercholesterolemia E78.00 Gross hematuria R31.0 Hematuria type: gross
== END 2023-07-11 16:35 | disposition home or self-care (01) ==
PROVIDERS: PCP Internal Medicine; Visit Provider Internal Medicine
DX: Z00.00 Encounter for general adult medical examination without abnormal findings (principal); D64.9 Anemia, unspecified; E03.9 Hypothyroidism, unspecified; N40.0 Benign prostatic hyperplasia without lower urinary tract symptoms; E78.00 Pure hypercholesterolemia, unspecified; R31.0 Gross hematuria
CPT/HCPCS: G0439

== ENCOUNTER → 2023-11-01 09:12 | Outpatient (BNVA) | payer SELFPAY | PROVIDERS: PCP Internal Medicine; Visit Provider Physician Assistant Medical | DX: Z02.79 Encounter for issue of other medical certificate (principal) ==

== ENCOUNTER 2023-12-03 11:20 | Emergency (ER) | payer OTHER, MEDICARE, SELFPAY ==
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
[2023-12-03 11:31] VITALS: BP 150/80; PULSE 58; O2SAT 98; BMI 26.6
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
[2023-12-03 12:00] VITALS: BP 134/55; PULSE 41; TEMP 36.4; O2SAT 97
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
[2023-12-03 12:17] LABS: MANUAL DIFF FLAG NO
[2023-12-03 12:19] LABS: Basophils Percent Auto 0.7 % (0-2); Eosinophils Absolute Auto 0.2 X10*3/uL (0.0-0.4); Eosinophils Percent Auto 3.1 % (0-4); Hematocrit 40.3 % (42.0-52.0); Hemoglobin 13.3 g/dl (14.0-18.0); Imm Gran Abs Auto 0.02 X10*3/uL (0.00-0.03); Imm Gran Pct Auto 0.3 % (0.0-0.4); Lymphocytes Absolute Auto 1.6 X10*3/uL (1.2-4.9); Lymphocytes Percent Auto 26.8 % (20-40); Mean Corpuscular Hemoglobin 30.3 pg (27.0-33.0); Mean Corpuscular Volume 91.8 fL (80.0-98.0); Monocytes Absolute Auto 0.4 X10*3/uL (0.1-1.2); Monocytes Percent Auto 7.1 % (2-11); Neutrophils Absolute Auto 3.7 x10*3/uL (2.0-8.3); Platelet Count 219 X10*3/uL (160-400); Red Blood Count 4.39 X10*6/uL (4.60-5.80); Red Cell Distribution Width 12.1 % (11.0-16.0)
[2023-12-03 12:35] LABS: Alanine Aminotransferase 15 U/L (0-40); Alkaline Phosphatase 79 U/L (39-117); Anion Gap 12 (12-20); Aspartate Amino Transferase 27 U/L (5-37); Bilirubin Direct 0.2 mg/dL (0.0-0.5); Bilirubin Total 0.8 mg/dL (0.0-1.0); Blood Urea Nitrogen 13 mg/dL (9-16); Calcium 8.8 mg/dL (8.4-10.2); Carbon Dioxide 26 mmol/L (22-29); Chloride 107 mmol/L (96-108); Creatinine Clr Calc Pharmacy 74.5; Estimated Glomerular Filt Rate > 60; Glucose Random 96 mg/dL (60-115); Sodium 141 mmol/L (135-145); Total Protein 6.9 g/dL (6.5-8.0)
[2023-12-03] MEDS: Acetaminophen 325 MG TABLET 975 MG PO (12:35)
[2023-12-03 14:20] VITALS: BP 117/61; PULSE 51; RESP 12; TEMP 36.6; O2SAT 98
[2023-12-03 16:11] VITALS: BP 117/61; PULSE 51; RESP 12; TEMP 36.4; O2SAT 98
== END 2023-12-03 16:12 | disposition home or self-care (01) ==
PROVIDERS: Physician Assistant; Emergency Provider Emergency Medicine; PCP Internal Medicine
DX: S20.311A Abrasion of right front wall of thorax, initial encounter (principal); S09.93XA Unspecified injury of face, initial encounter; V47.5XXA Car driver injured in collision with fixed or stationary object in traffic accident, initial encounter; Y93.89 Activity, other specified; Y92.414 Local residential or business street as the place of occurrence of the external cause; Y99.9 Unspecified external cause status; E78.00 Pure hypercholesterolemia, unspecified; Z79.02 Long term (current) use of antithrombotics/antiplatelets
CPT/HCPCS: 36415; 70450; 70486; 71250; 72125; 80048; 80076; 83735; 85025; 93005; 99284

== ENCOUNTER → 2023-12-03 11:41 | Outpatient (BNV) | payer MEDICARE, SELFPAY | PROVIDERS: Emergency Provider Emergency Medicine; PCP Internal Medicine; Visit Provider Internal Medicine Cardiovascular Disease | DX: R94.31 Abnormal electrocardiogram [ECG] [EKG] (principal) | CPT/HCPCS: 93010 ==

== ENCOUNTER 2023-12-21 11:10 | Outpatient (AMB) | payer OTHER, MEDICARE, SELFPAY ==
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
[2023-12-21 11:18] VITALS: BP 102/52; PULSE 57; O2SAT 98; BMI 25.4
== END 2023-12-21 12:19 | disposition home or self-care (01) ==
PROVIDERS: PCP Internal Medicine; Visit Provider Internal Medicine
DX: S20.3 Other and unspecified superficial injuries of front wall of thorax (principal); V89.2XXD Person injured in unspecified motor-vehicle accident, traffic, subsequent encounter; Z04.3 Encounter for examination and observation following other accident
CPT/HCPCS: 99213

== ENCOUNTER 2024-01-14 12:43 | Outpatient (AMB) | payer MEDICARE, OTHER, SELFPAY ==
[2024-01-14 12:45] VITALS: BP 112/78; PULSE 65; O2SAT 97; BMI 25.4
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
== END 2024-01-14 13:40 | disposition home or self-care (01) ==
PROVIDERS: PCP Internal Medicine; Visit Provider Internal Medicine
DX: D64.9 Anemia, unspecified (principal); E03.9 Hypothyroidism, unspecified; E78.00 Pure hypercholesterolemia, unspecified; N40.0 Benign prostatic hyperplasia without lower urinary tract symptoms
CPT/HCPCS: 99214

== ENCOUNTER 2024-08-18 10:01 | Outpatient (AMB) | payer MEDICARE, SELFPAY ==
--- NOTE | 2024-08-18 10:10 | A.OFFVIS_ITS ---
Intake Vital Signs 08/18/24 10:11 Height 5 ft 7 in Weight 173 lb BMI 27.1 BP 118/72 Blood Pressure Location Lt brachial Position Sitting Pulse 71 Pulse Source Pulse Oximeter Pulse Oximetry (%) 98 Oxygen Delivery Method Room Air Intake Visit Reasons: [facility] G0439 Allergies No Known Allergies [No Known Allergies*] Allergy (Verified 08/18/24 10:12) Medication List - Last Reconciled 08/18/24 by Jonathan Pearl MD coenzyme Q10 (CoQ-10) 100 mg PO DAILY ylwbadbc-rbutz-ele4-C-justin-bor 491-214-68-1 mg (Zxtxrafypij-Bkpdbasivlc-OHF) tabs PO ibuprofen 400 mg PO Q6H levothyroxine 112 mcg PO QAM multivitamin 1 tab PO DAILY omega 4-zhp-ioq-fish oil 60-90-500 mg (Fish Oil) 1 cap PO DAILY saw palmetto 320 mg PO DAILY simvastatin 10 mg PO QPM sumatriptan succinate (Imitrex) 50 mg PO Q2-4H PRN HPI [facility] G0439 HPI Details 73-year-old overweight male noted 11 lb weight gain with hypothyroidism BPH hypercholesterolemia and anemia chronic last seen in January patient is here for annual well visit. [facility] Medical History (Updated 12/21/23 @ 12:17 by Jonathan Pearl MD) Closed right hip fracture Testicular nodule Heel fracture Hypercholesterolemia Vitamin D deficiency Hypothyroid BPH (benign prostatic hyperplasia) Migraine Anemia Osteoarthritis Surgical History History of right hip hemiarthroplasty Hx of dilation of urethra History of foot surgery History of inguinal hernia repair History of nasal surgery History of ankle surgery Family History Father CAD (coronary artery disease) Smoker CVD (cardiovascular disease) Malaria Mother Diabetes Pancreatic cancer Paternal Grandmother Breast cancer Social History (Updated 07/11/23 @ 16:19 by Jonathan Pearl MD) Housing: House Alcohol intake: current Alcohol intake frequency: holidays/special occasions only Comment: 2-3 drinks a week 1-2 x a week Patient Tobacco Use Status: Never used Tobacco e-Cigarette/Vaping Use: Never Used Second Hand Smoke Exposure: No Current occupational status: employed and retired 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 Cognitive needs: No Hearing needs: No Vision needs: Yes Questionnaire Medicare Wellness Checkup [age] What gender do you identify with?: male During the past 4 weeks, how much have you been bothered by emotional problems such as feeling anxious, depressed, irritable, sad or downhearted, and blue?: not at all During the past 4 weeks, has your physical & emotional health limited your social activities with family, friends, neighbors, or groups?: not at all During the past 4 weeks, how much bodily pain have you generally had?: very mild pain During the past 4 weeks, was someone available to help you if you needed & wanted help?: yes, quite a bit During the past 4 weeks, what was the hardest physical activity you could do for at least 2 minutes?: heavy Can you get to places out of walking distance without help? (For eg., can you travel alone on buses, taxis or drive your car?): Yes Can you go shopping for groceries or clothes without someone's help?: Yes Can you prepare your own meals?: Yes Can you do your housework without help?: Yes Because of any health problems, do you need the help of another person with your personal care needs such as eating, bathing, dressing or getting around the house?: No Can you handle your own money without help?: Yes During the past 4 weeks, how would you rate your health in general?: excellent During the past 4 weeks how have things been going for you?: very well; could hardly better Are you having difficulties driving your car?: no Do you always fasten your seat belt when you are in a car?: yes, usually During past 4 weeks, have you been bothered by the following: never: Falling or dizzy when standing up, Sexual problems?, Trouble eating well?, Problems using the telephone? and Tiredness or fatigue? and seldom: Teeth or denture problems? Have you fallen 2 or more times in the past year?: No Are you afraid of falling?: No Are you a smoker?: no During the past 4 weeks, how many drinks of wine, beer, or other alcoholic beve rages did you have?: 2-5 drinks per week Do you exercise for about 20 minutes 3 or more times a week?: no, I usually do not exercise this much Have you been given information to help with the following?: no: Hazards in your house that might hurt you? and no: Keeping track of your medications? How often do you have trouble taking medicines the way you have been told to take them?: I always take medicine as prescribed How confident are you that you can control & manage most of your health problems?: very confident What is your race?: White PHQ-9 Over the last 2 weeks, how often have you been bothered by any of the following problems? 1. Little interest or pleasure in doing things: not at all 2. Feeling down, depressed, or hopeless: not at all 3. Trouble falling or staying asleep, or sleeping too much: not at all 4. Feeling tired or having little energy: several days 5. Poor appetite or overeating: not at all 6. Feeling bad about yourself - or that you are a failure or have let yourself or your family down: not at all 7. Trouble concentrating on things, such as reading the newspaper or watching television: several days 8. Moving or speaking so slowly that other people could have noticed. Or the opposite - being so fidgety or restless that you have been moving around a lot more than usual: not at all 9. Thoughts that you would be better off or of hurting yourself in some way: not at all Total score: 2 Depression Screening Interpretation: Positive Depression Screening Done: Yes 94274 - PHQ-9 Billing: Yes Source: Developed by Drs. Jean Adair, Rebeka Chaudhary, Tony Jiang and colleagues, with an educational ganesh from [employer]. Thrive Questionnaire Date Thrive assessed: 08/18/24 I am a: Patient What is your living situation today?: I have a steady place to live Within the past 12 months, did the food you bought not last and you didn't have the money to get more?: Never true Within the past 12 months, did you worry whether your food would run out before you got money to buy more?: Never true Do you have trouble paying for medicines?: No Do you have trouble getting transportation to medical appointments?: No Do you have trouble paying your heating and electricity bill?: No Do you have trouble taking care of your child, family member or friend?: No Do you have trouble with day-to-day activities such as bathing, preparing meals, shopping, managing finances, etc.?: No Are you currently unemployed and looking for a job?: No Are you interested in more education?: No Currently or been in a relationship where the following occur: No concerns reported THRIVE Score: 0 ALBA-7 AMB Questionnaire ALBA-7 Date ALBA - 7 assessed: 08/18/24 Feeling nervous, anxious, or on edge: 0 = Not at all Not being able to stop or control worryin = Not at all Worrying too much about different things: 0 = Not at all Trouble relaxin = Not at all Being so restless that it is hard to sit still: 0 = Not at all Becoming easily annoyed or irritable: 0 = Not at all Feeling afraid as if something awful might happen: 0 = Not at all Total ALBA-7 score (0-4 normal; 5-9 mild; 10-14 moderate; 15-21 severe): 0 Source: Developed by Drs. Jean Adair, Rebeka Chaudhary, Tony Jiang and colleagues, with an educational ganesh from [employer]. Review of Systems Const Denies poor appetite and Denies weakness Eyes Denies no additional complaints ENT Reports Normal hearing present, Denies dizziness, Denies nasal congestion, Denies tinnitus and Denies sore throat Card Denies chest pain, Denies syncope, Denies rapid heart rate and Denies dyspnea Resp Denies cough and Denies dyspnea GI Denies change in stool character, Reports constipation, Denies diarrhea, Denies nausea and Denies vomiting Denies dysuria and Denies urinary frequency Neuro Reports Normal hearing present, Denies confusion, Denies dizziness, Denies syncope and Denies weakness Psych Denies confusion Physical Exam Vital Signs: Last Vital Signs Pulse 71 08/18/24 10:11 BP 118/72 08/18/24 10:11 Pulse Ox 98 08/18/24 10:11 Oxygen Delivery Method Room Air 08/18/24 10:11 BMI result Body Mass Index 27.1 Const General: No confusion Orientation/consciousness: No confusion HEENT Head: Yes normocephalic Ears: external ears normal and TM's normal bilaterally Face and sinus: Yes normal facial exam Mouth: moist mucous membranes Throat: Yes tonsils normal Eyes Conjunctivae: conjunctivae normal Pupils: Equal, round and reactive pupils present and Pupil accommodation reflex normal Direct Ophthalmoscopy: normal light reflex Neck Neck: No lymphadenopathy Thyroid: Thyroid normal Chest Chest palpation & inspection: normal inspection of the chest Resp Effort & Inspection: normal respiratory effort and no audible wheezes Auscultation: clear to auscultation bilaterally, no crackles, no wheezes and lung sounds not diminished Cardio Rate: regular rate Rhythm: regular rhythm Peripheral pulses: radial pulses present and dorsalis pedis present GI Other: guaaic negative prostate enlarged Palpation (GI): no masses Auscultation: normal bowel sounds and normoactive bowel sounds Male General Exam: Yes normal external exam Skin General skin exam: no rashes or lesions noted Rashes: no rashes Neuro General: No confusion Cranial nerves: Yes Equal, round and reactive pupils present and Yes Normal hearing present Cognition (Neuro): normal cognition Gait exam (Neuro): Normal gait present Motor exam (neuro): 5/5 motor strength present throughout Deep tendon reflexes (DTR's): Right brachioradialis reflex intensity grade: 2+, Left brachioradialis reflex intensity grade: 2+, Right patellar reflex intensity grade: 2+ and Left patellar reflex intensity grade: 2+ Extrem General: No edema Assessment & Plan Assessment & Plan (1) Medicare annual wellness visit, subsequent: Code(s): Z00.00 - Encounter for general adult medical examination without abnormal findings Plan: Patient is advised to eat healthy, keep well hydrated, keep active and have adequate sleep. (2) Anemia: Code(s): D64.9 - Anemia, unspecified Qualifiers: Anemia type: unspecified type Qualified Code(s): D64.9 - Anemia, unspecified Plan: Chronic and will retest and follow-up (3) BPH (benign prostatic hyperplasia): Comment: s/p TUNA Code(s): N40.0 - Benign prostatic hyperplasia without lower urinary tract symptoms Qualifiers: Lower urinary tract symptom presence: unspecified whether lower urinary tract symptoms present Qualified Code(s): N40.0 - Benign prostatic hyperplasia without lower urinary tract symptoms Plan: Stable last ultrasound in 2022 not bothered by the symptom. Continuing to monitor (4) Hypothyroid: Code(s): E03.9 - Hypothyroidism, unspecified Qualifiers: Hypothyroidism type: unspecified Qualified Code(s): E03.9 - Hypothyroidism, unspecified Plan: Discussed the need for blood work and last blood work was 2022. (5) Hypercholesterolemia: Code(s): E78.00 - Pure hypercholesterolemia, unspecified Plan: Avoid fried foods, chicken skin, eggs, butter margarine, pastries and meat. Be it pork or beef they have a lot of cholesterol on simvastatin and will continue to monitor cholesterol. Blood work requested Quality Reporting (2019) Depression/Bipolar (159/160/161/177) PHQ-9: Total score: 2 Coding Level of Care Code Medicare Subsequent (G0439) Diagnoses Medicare annual wellness visit, subsequent Z00.00 Anemia, unspecified type D64.9 Anemia type: unspecified type Benign prostatic hyperplasia, unspecified whether lower urinary tract symptoms present N40.0 Lower urinary tract symptom presence: unspecified whether lower urinary tract symptoms present Hypothyroidism, unspecified type E03.9 Hypothyroidism type: unspecified Hypercholesterolemia E78.00 Additional Codes PHQ-9 - 88888 - PHQ-9 Billing: Yes ([id number])
[2024-08-18 10:11] VITALS: BP 118/72; PULSE 71; O2SAT 98; BMI 27.1
--- OUTSIDE RECORDS SUMMARY | 2024-08-18 10:41 | XMS_ITS | Data Portability ---
Author Organization [facility] [address] Address [address] [place] [address] Assessment No assessment recorded. Plan of Treatment Reminders Order Date Submit Date Provider Last Modified By Organization Details Last Modified Time Details Appointments None record ed. Lab None record ed. Referral None record ed. Procedures None record ed. Surgeries None record ed. Imaging None record ed. Medication Orders None record ed. Patient TargetsNo targets recorded. Patient InstructionsNo instructions recorded. Reason for Referral None Reported. Procedures Surgical History Date Name Laterality Status Provider Name and Address Organization Details Recorded Time 3 OC-UDS Rapid 5 or 10 panel Template completed Idalmis Zhang [employer] 12/27/2022 14:46:47 3 OC-DoocumentsS Rapid 5 or 10 panel Template completed KRYSTAL LOGAN [employer] 12/12/2022 17:12:00 Imaging Results None recorded. Procedure Notes None recorded. Medical Equipment None Reported. Medications Name Sig Start Date Stop Date Status Note LastModified by Organization Details LastModified Time simvastatin 10 mg tablet active Not Available Not Available No t Available levothyroxine 112 mcg tablet active Not Available Not Availab le Not Available Vitals None Recorded Social History None recorded. Functional Status None recorded. Mental Status None recorded. Family History Nothing Reported. Medical History No medical history recorded. Past Encounters Encounter ID Performer Location Encounter Start Date Encounter Closed Date Diagnosis/Indication Diagnosis SNOMED-CT Code Diagnosis ICD10 Code Diagnosis Note [id number] [address] [address] 12/12/2018 15:56:39 12/12/2018 16:17:[id number] [address] 12/10/2018 15:11:55 12/10/2018 16:16:13 [id number] [address] [facility] [place] [address] 04/18/2017 12:39:33 04/18/2017 13:47:34 [id number] [address] [place] [address] 06/05/2016 12:35:55 06/05/2016 13:31:36 [id number] Leelee Tapia MD [address] [place] [address] 12/12/2022 16:47:41 12/12/2022 17:55:35 History and physical examination, occupation [id number] Z02.1 [id number] Jayant Lakhani NP [address] [place] [address] 12/27/2022 13:53:45 12/27/2022 15:41:37 History and physical examination, occupation [id number] Z02.1 Health Concerns Section Related Observation LastModified by Organization Detai ls LastModified Time None Recorded Concern Status LastModified by Organization Details LastModified Time None Recorded Advance Directives Directive None Recorded Payers Encounter Date Sequence Insurance Name Policy Number Policy Reynolds Covered Member ID Reynolds Member ID Guarantor Name 12/10/2018 1 [place] [employer] Geraldo Eastman Ephraim [id number] Geraldo Ye 12/10/2018 2 [employer] (MEDICARE SUPPLEMENT) Geraldo A Ephraim [id number] Geraldo Jaren Ephraim 12/12/2018 1 [place] [employer] Geraldo A Ephraim [id number] Geraldo Ye 12/12/2018 2 [employer] (MEDICARE SUPPLEMENT) Geraldo Ye [id number] Geraldo Ye 12/12/2022 2 [employer] (MEDICARE SUPPLEMENT) Geraldo A Ephraim [id number] Geraldo Ye 12/12/2022 OC-PAY AT TIME OF SERVICE 2022 Geraldo Ye [id number] Geraldo Ye 12/27/2022 OC-PAY AT TIME OF SERVICE 2022 Geraldo Ye [id number] Geraldo Ye
== END 2024-08-18 11:01 | disposition home or self-care (01) ==
PROVIDERS: PCP Internal Medicine; Visit Provider Internal Medicine
DX: Z00.00 Encounter for general adult medical examination without abnormal findings (principal); D64.9 Anemia, unspecified; N40.0 Benign prostatic hyperplasia without lower urinary tract symptoms; E03.9 Hypothyroidism, unspecified; E78.00 Pure hypercholesterolemia, unspecified

== ENCOUNTER → 2024-08-18 10:01 | Outpatient (BNVA) | payer MEDICARE, SELFPAY | PROVIDERS: PCP Internal Medicine; Visit Provider Internal Medicine | DX: Z00.00 Encounter for general adult medical examination without abnormal findings (principal); D64.9 Anemia, unspecified; N40.0 Benign prostatic hyperplasia without lower urinary tract symptoms; E03.9 Hypothyroidism, unspecified; E78.00 Pure hypercholesterolemia, unspecified | CPT/HCPCS: 96127 ==

== ENCOUNTER 2025-05-04 10:30 | Outpatient (REF) | payer MEDICARE, OTHER, SELFPAY ==
[2025-05-04 13:18] LABS: MANUAL DIFF FLAG NO
[2025-05-04 13:34] LABS: Hematocrit 40.7 % (42.0-52.0); Hemoglobin 13.2 g/dl (14.0-18.0); Imm Gran Abs Auto 0.01 X10*3/uL (0.00-0.03); Imm Gran Pct Auto 0.2 % (0.0-0.4); Lymphocytes Absolute Auto 2.0 X10*3/uL (1.2-4.9); Mean Corpuscular HGB Conc 32.4 g/dl (31.0-36.0); Mean Corpuscular Hemoglobin 29.9 pg (27.0-33.0); Mean Corpuscular Volume 92.1 fL (80.0-98.0); NRBC Abs Auto 0.000 X10*3/uL (0.0-0.012); NRBC Pct Auto 0.0 /100WBC (0.0-0.2); Platelet Count 262 X10*3/uL (160-400); Red Blood Count 4.42 X10*6/uL (4.60-5.80); Reticulocytes Absolute 0.041 X10*6/uL (0.026-0.095); White Blood Count 5.2 X10*3/uL (4.8-10.8)
[2025-05-04 14:06] LABS: Alanine Aminotransferase 16 U/L (0-40); Albumin Level 4.0 g/dL (3.5-5.0); Alkaline Phosphatase 82 U/L (39-117); Anion Gap 10 (12-20); Aspartate Amino Transferase 34 U/L (5-37); Blood Urea Nitrogen 15 mg/dL (9-16); Calcium 8.7 mg/dL (8.4-10.2); Carbon Dioxide 27 mmol/L (22-29); Chloride 107 mmol/L (96-108); Cholesterol 166 mg/dL (<200); Estimated Glomerular Filt Rate > 60; HDL Cholesterol 48 mg/dL (>40); Iron 148 mcg/dL (45-160); Percent Iron Saturation 55 % (15-50); Potassium 4.3 mmol/L (3.3-5.1); Sodium 140 mmol/L (135-145); Total Iron Binding Capacity 267 mcg/dL (228-428); Total Protein 6.7 g/dL (6.5-8.0); Triglycerides 94 mg/dL (<150); Unsaturated Iron Binding 119 ug/dL
[2025-05-04 14:10] LABS: Ferritin 88 ng/mL (20-250); Free T4 (Free Thyroxine) 1.08 ng/dL (0.71-1.85); Thyroid Stimulating Hormone 1.92 uIU/mL (0.32-4.0)
[2025-05-04 14:20] LABS: Folate 10.7 ng/mL (> or = 4.0); Vitamin B12 302 pg/mL (200-900)
== END 2025-05-04 10:31 | disposition home or self-care (01) ==
LOC: HO.HMGCLDS 10:30
PROVIDERS: PCP Internal Medicine; Visit Provider Internal Medicine
DX: Z12.5 Encounter for screening for malignant neoplasm of prostate (principal); E78.00 Pure hypercholesterolemia, unspecified; R31.9 Hematuria, unspecified
CPT/HCPCS: 36415; 80053; 80061; 82607; 82728; 82746; 83540; 84153; 84439; 84443; 85025; 85045

== ENCOUNTER 2025-05-07 14:01 | Outpatient (AMB) | payer MEDICARE, OTHER, SELFPAY ==
[2025-05-07 14:13] VITALS: BP 110/70; PULSE 51; O2SAT 96; BMI 27.6
--- NOTE | 2025-05-07 14:13 | A.OFFPC_ITS ---
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: No Accompanied by: Self / Same As Patient Allergies No Known Allergies (No Known Allergies*) Allergy (Verified 05/07/25 14:13) Medication List - Last Reconciled 05/07/25 by Jonathan Pearl MD coenzyme Q10 (CoQ-10) 100 mg PO DAILY obifooeu-hwckz-hea0-C-justin-bor [id number] mg (Clhrkeiynkg-Pjcrpesfamu-SWP) tabs PO ibuprofen 400 mg PO Q6H levothyroxine 112 mcg PO QAM multivitamin 1 tab PO DAILY omega 1-pga-fpw-fish oil 60-90-500 mg (Fish Oil) 1 cap PO DAILY saw palmetto 320 mg PO DAILY simvastatin 10 mg PO QPM sumatriptan succinate (Imitrex) 50 mg PO Q2-4H PRN Tobacco use date assessed: 05/07/25 Fall risk assessment: No Falls in past year Last assessed Fall Risk: 05/07/25 Dental Screening Dental Screen Date: 05/07/25 Did you have a dental visit in the last 12 months?: Yes Did you have a dental problem in the last 6 months where you did not have access to dental care?: No Was dental information given to patient?: Patient has dentist HPI hypothyroid HPI Details R side drooping selam states bells palsy- [facility]- [facility]- [facility] infection also - [facility] Medical History (Updated 05/07/25 @ 17:19 by Jonathan Pearl MD) Closed right hip fracture Testicular nodule Heel fracture Hypercholesterolemia Vitamin D deficiency Hypothyroid BPH (benign prostatic hyperplasia) Migraine Anemia Osteoarthritis Surgical History History of right hip hemiarthroplasty Hx of dilation of urethra History of foot surgery History of inguinal hernia repair History of nasal surgery History of ankle surgery Family History Father CAD (coronary artery disease) Smoker CVD (cardiovascular disease) Malaria Mother Diabetes Pancreatic cancer Paternal Grandmother Breast cancer Social History Housing: House Alcohol intake: current Alcohol intake frequency: holidays/special occasions only Comment: 2-3 drinks a week 1-2 x a week Patient Tobacco Use Status: Never used Tobacco e-Cigarette/Vaping Use: Never Used Second Hand Smoke Exposure: No Current occupational status: employed and retired 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 1. Little interest or pleasure in doing things: not at all 2. Feeling down, depressed, or hopeless: not at all 3. Trouble falling or staying asleep, or sleeping too much: not at all 4. Feeling tired or having little energy: not at all 5. Poor appetite or overeating: not at all 6. Feeling bad about yourself - or that you are a failure or have let yourself or your family down: not at all 7. Trouble concentrating on things, such as reading the newspaper or watching television: not at all 8. Moving or speaking so slowly that other people could have noticed. Or the opposite - being so fidgety or restless that you have been moving around a lot more than usual: not at all 9. Thoughts that you would be better off or of hurting yourself in some way: not at all Total score: 0 Source: Developed by Drs. Jean Adair, Rebeka Chaudhary, Tony Jiang and colleagues, with an educational ganesh from [employer]. Thrive Questionnaire Date Thrive assessed: 08/18/24 I am a: Patient What is your living situation today?: I have a steady place to live Within the past 12 months, did the food you bought not last and you didn't have the money to get more?: Never true Within the past 12 months, did you worry whether your food would run out before you got money to buy more?: Never true Do you have trouble paying for medicines?: No Do you have trouble getting transportation to medical appointments?: No Do you have trouble paying your heating and electricity bill?: No Do you have trouble taking care of your child, family member or friend?: No Do you have trouble with day-to-day activities such as bathing, preparing meals, shopping, managing finances, etc.?: No Are you currently unemployed and looking for a job?: No Are you interested in more education?: No Please select the resources that you would like help with: None Currently or been in a relationship where the following occur: No concerns reported THRIVE Score: 0 AUDIT C Alcohol Use Questionnaire (AUDIT-C) 1. How often do you have a drink containing alcohol?: 2-3 times a week 2. How many drinks containing alcohol do you have on a typical day when you are drinking?: 1 or 2 3. How often do you have six or more drinks on one occasion?: Never Total Score: 3 ALBA-7 AMB Questionnaire ALBA-7 Date ALBA - 7 assessed: 08/18/24 Feeling nervous, anxious, or on edge: 0 = Not at all Not being able to stop or control worryin = Not at all Worrying too much about different things: 0 = Not at all Trouble relaxin = Not at all Being so restless that it is hard to sit still: 0 = Not at all Becoming easily annoyed or irritable: 0 = Not at all Feeling afraid as if something awful might happen: 0 = Not at all Total ALBA-7 score (0-4 normal; 5-9 mild; 10-14 moderate; 15-21 severe): 0 Source: Developed by Drs. Jean Adair, Rebeka Chaudhary, Tony Jiang and colleagues, with an educational ganesh from [employer]. Physical exam (Primary Care) Vital Signs: Last Vital Signs Pulse 51 05/07/25 14:13 BP 110/70 05/07/25 14:13 Pulse Ox 96 05/07/25 14:13 Oxygen Delivery Method Room Air 05/07/25 14:13 BMI result Body Mass Index 27.6 Tobacco/Smoking Status: Tobacco use Status Tobacco use date assessed 05/07/25 05/07/25 14:14 Patient Tobacco Use Status Never used Tobacco 05/07/25 14:14 e-Cigarette/Vaping Use Never Used 05/07/25 14:14 PHQ-9: PHQ-9 Score PHQ-9: Total score 0 05/07/25 14:59 Thrive Assessment: Date of Thrive Assessment Date Thrive assessed 08/18/24 05/07/25 14:14 Currently or been in a relationship where the following occur: No concerns reported Const General: alert; No acute distress Eyes Conjunctivae: conjunctivae normal Resp Auscultation: clear to auscultation bilaterally Cardio Rate: regular rate Rhythm: regular rhythm GI Inspection: Yes normal to inspection Extrem General: Yes normal to inspection and No edema Coding Level of Care Code Est Pt Level 4 (59129) Complex EM visit Add On G2211 Diagnoses Benign prostatic hyperplasia, unspecified whether lower urinary tract symptoms present N40.0 Lower urinary tract symptom presence: unspecified whether lower urinary tract symptoms present Anemia, unspecified type D64.9 Anemia type: unspecified type Hypothyroidism, unspecified type E03.9 Hypothyroidism type: unspecified Hypercholesterolemia E78.00 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 (2) Anemia: Code(s): D64.9 - Anemia, unspecified Category: Medical Qualifiers: Anemia type: unspecified type Qualified Code(s): D64.9 - Anemia, unspecified Plan: Continue to monitor (3) Hypothyroid: Code(s): E03.9 - Hypothyroidism, unspecified Category: Medical Qualifiers: Hypothyroidism type: unspecified Qualified Code(s): E03.9 - Hypothyroidism, unspecified Plan: Continue with thyroid medication (4) Hypercholesterolemia: Code(s): E78.00 - Pure hypercholesterolemia, unspecified Category: Medical Plan: Avoid fried foods, chicken skin, eggs, butter margarine, pastries and meat. Be it pork or beef they have a lot of cholesterol on simvastatin 10 mg once a day (5) Bonilla's palsy: Comment: February 2025 Code(s): G51.0 - Bonilla's palsy Category: Medical Plan: Resolved Plan History of Present Illness The patient is a 74-year-old male presenting for a follow-up visit after being last seen in August for an annual wellness check. The patient has a history of benign prostatic hyperplasia (BPH) and is continuing with saw palmetto for management. He reports no significant improvement with the medication and is considering discontinuation. The patient has hypercholesterolemia and is on simvastatin 10 mg daily, although he admits to not taking it consistently every day. His LDL cholesterol was noted to be 100 mg/dL, which is considered satisfactory. The patient has a history of mild anemia, which has been stable over time. His blood work shows normal electrolytes, renal function, and blood sugar levels. Recently, the patient experienced Bonilla's palsy, which was diagnosed after presenting with facial drooping on the right side and an ear infection. He was treated with prednisone, antivirals, and antibiotics, but the symptoms persisted for about a month before improving. A Lyme disease test was conducted and returned negative. The patient also reports arthritis in his wrist and foot, which he acknowledges will not resolve completely. Health Maintenance - COVID booster received - Flu vaccination administered on April 15 Social History - The patient is active and reports no significant difficulties in daily activities. Review of Systems - Neurological: Reports facial drooping on the right side, denies persistent symptoms post-treatment. - Musculoskeletal: Reports arthritis in the wrist and foot. - Respiratory: Denies cough or respiratory distress. Physical Exam Results - Labs: LDL cholesterol at 100 mg/dL, electrolytes normal, renal function normal, blood sugar normal, mild anemia stable. - Tests: Lyme disease test negative. Plan Patient was informed and verbally consented to the use of an ambient scribe for clinic note documentation during this visit. 1. Benign Prostatic Hyperplasia (Bph) The patient is advised to continue monitoring symptoms and consider discontinuation of saw palmetto if no improvement is noted. 2. Hypercholesterolemia The patient is on simvastatin 10 mg daily, and it is recommended to maintain consistent medication adherence to manage cholesterol levels effectively. 3. Anemia The patient's mild anemia is stable, and no immediate intervention is required as current lab results are satisfactory. 4. Bonilla's Palsy The patient was treated with prednisone, antivirals, and antibiotics, and symptoms have improved over time. Continued monitoring is advised. 5. Ear Infection The ear infection was treated with antibiotics, and the patient reports improvement. Continued monitoring is advised. Discussion Notes During the visit, we discussed the patient's current health status, including the management of BPH with saw palmetto and the importance of consistent medication adherence for hypercholesterolemia. We reviewed the recent episode of Bonilla's palsy and the treatment received, noting the improvement in symptoms. The patient was advised to continue monitoring his health and to follow up in six months. Patient Instructions - Continue taking simvastatin daily to manage cholesterol levels. - Monitor symptoms of BPH and consider discontinuing saw palmetto if no improvement is noted. - Follow up in six months for routine check-up.
--- OUTSIDE RECORDS SUMMARY | 2025-05-07 17:52 | XMS_ITS | Data Portability ---
Author Organization [facility] [employer] [facility], [address] Address [address] [place] [address] Assessment No assessment recorded. Plan of Treatment [...] or 10 panel Template completed Idalmis Zhang [employer] 12/27/2022 14:46:47 3 OC-UDS Rapid 5 or 10 panel Template completed KRYSTAL LOGAN [employer] 12/12/2022 17:12:00 Imaging Results None recorded. Procedure [...] Diagnosis SNOMED-CT Code Diagnosis ICD10 Code Diagnosis IMO Codes Diagnosis Note [id number] [facility] [address] [place] [address] 12/12/2018 15:56:39 12/12/2018 16:17:55 [id number] [address] [place] [address] 12/10/2018 15:11:55 12/10/2018 16:16:13 [id number] [address] [address] [place] [address] 04/18/2017 12:39:33 04/18/2017 13:47:34 [id number] [address] [facility] [address] [address] [place] [address] 06/05/2016 12:35:55 06/05/2016 13:31:36 [id number] Leelee Tapia MD [address] [place] [address] 12/12/2022 16:47:41 12/12/2022 17:55:35 History and physical examination, occupation [id number] Z02.1 [id number] Jayant Lakhani [place] [address] [place] [address] 12/27/2022 13:53:45 12/27/2022 15:41:37 History and physical examination, occupation [id number] Z02.1 Health Concerns Section Related Observation LastModified by Organization Detai ls LastModified Time None Recorded Concern Status LastModified by Organization Details LastModified Time None Recorded Advance Directives Directive None Recorded Payers Insurance Date Sequence Insurance Name Policy Number Policy Reynolds Covered Member ID Reynolds Member ID Guarantor Name 12/27/2022 1 [place]IC[place]: [employer] Geraldo Ye [id number] Geraldo Ye 12/27/2022 2 [employer] (MEDICARE SUPPLEMENT) Geraldo Ye [id number] Geraldo Ye 06/05/2022 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
== END 2025-05-07 15:13 | disposition home or self-care (01) ==
LOC: HO.HMCH 14:01
PROVIDERS: PCP Internal Medicine; Visit Provider Internal Medicine
DX: N40.0 Benign prostatic hyperplasia without lower urinary tract symptoms (principal); D64.9 Anemia, unspecified; E03.9 Hypothyroidism, unspecified; E78.00 Pure hypercholesterolemia, unspecified; G51.0 Bell's palsy

== ENCOUNTER → 2025-05-07 14:01 | Outpatient (BNVA) | payer MEDICARE, OTHER, SELFPAY | PROVIDERS: PCP Internal Medicine; Visit Provider Internal Medicine | DX: N40.0 Benign prostatic hyperplasia without lower urinary tract symptoms (principal); D64.9 Anemia, unspecified; E03.9 Hypothyroidism, unspecified; E78.00 Pure hypercholesterolemia, unspecified; G51.0 Bell's palsy | CPT/HCPCS: 99212 ==